=== PATIENT | female | born 1955 | race Two or more races ===

== ENCOUNTER 2017-10-30 12:04 | Inpatient (IN) | payer OTHER ==
[~2017-10-30] VITALS: Ht 160 cm; Wt 69.4 kg
[~2017-10-30 12:04] MED LIST: CRESTOR5 MG PO; LOSARTAN-HCTZ1 EACH PO; NEURONTIN800 MG PO; ULTRACET PO; VOLTAREN-XR100 MG PO
[2017-11-06] MEDS ORDERED: DOCUSATE SODIU100 MG PO (11:10)
[2017-11-06] MEDS ORDERED: PERCOCET 5-3251 EACH PO (11:13)
[2017-11-06] MEDS ORDERED: CLONAZEPAM1 MG PO (11:13)
== END 2017-11-06 14:03 | disposition home or self-care (01) | DRG 472 ==
LOC: O/R 11-05 04:30 → PED 11-05 10:24 → SURG 11-05 12:03 → PED 11-06 14:03
PROVIDERS: Orthopaedic Surgery Orthopaedic Surgery of the Spine
PROC: 0RG20A0 Fusion of 2 or more Cervical Vertebral Joints with Interbody Fusion Device, Anterior Approach, Anterior Column, Open Approach (ICD-10-PCS; 2017-11-05)
PROC: 0RT30ZZ Resection of Cervical Vertebral Disc, Open Approach (ICD-10-PCS; principal; 2017-11-05 13:30)
DX: M47.12 Other spondylosis with myelopathy, cervical region (principal); M50.023 Cervical disc disorder at C6-C7 level with myelopathy; I10 Essential (primary) hypertension